=== PATIENT | male | born 1995 | race Caucasian/White ===

== ENCOUNTER 2020-06-20 10:39 | Outpatient (REF) | payer OTHER, SELFPAY | END 2020-06-20 10:40 | disposition home or self-care (01) | LOC: HO.LAB 10:39 | PROVIDERS: Visit Provider Internal Medicine | DX: Z20.828 Contact with and (suspected) exposure to other viral communicable diseases (principal) | CPT/HCPCS: C9803; U0003 ==

== ENCOUNTER 2020-09-27 09:22 | Emergency (ER) | payer OTHER, SELFPAY ==
--- NOTE | ~2020-09-27 | XR_ITS ---
EXAMINATION: XR CHEST CLINICAL INFORMATION: Chest pressure COMPARISON: None TECHNIQUE: Portable upright AP x2 views of the chest was obtained. FINDINGS: The lungs are clear. There is no pneumothorax or pleural reaction. No airspace consolidation or groundglass opacity. The costophrenic sulci are well-defined. The heart is normal in size. The hilar and mediastinal contours and bony structures are unremarkable. XR/XR chest 1V IMPRESSION: Unremarkable examination.
[2020-09-27 09:24] VITALS: BP 126/63; PULSE 68; RESP 18; TEMP 36.8; O2SAT 100; BMI 29.0
--- NOTE | 2020-09-27 09:44 | ECG_ITS ---
Test Reason : CHEST PAIN Blood Pressure : / mmHG Vent. Rate : 077 BPM Atrial Rate : 077 BPM P-R Int : 154 ms QRS Dur : 098 ms QT Int : 400 ms P-R-T Axes : 056 069 012 degrees QTc Int : 452 ms Normal sinus rhythm with sinus arrhythmia Nonspecific ST and T wave abnormality Abnormal ECG No previous ECGs available Referred By: Jossy Bailey Electronically Signed By:STELLA ARCE MD
--- NOTE | 2020-09-27 10:03 | ED_ITS ---
HPI - Chest Pain General Chief Complaint: Chest Pain Stated Complaint: chest pressure,vomiting 2 weeks Time Seen by Provider: 09/27/20 09:43 Source: patient Mode of arrival: ambulatory Limitations: no limitations History of Present Illness HPI narrative: 25 y/o male with no PMH presents to the ED with 2 weeks of gabriel ious symptoms including fatigue, generalized weakness, nausea along with palpitations and chest pressure. He wakes up each morning nauseated but does not vomit. He states he has been eating and drinking normally later in the day. He denies abdominal pain. He states he feels intermittent chest pressure and has noticed his heart racing. He checked his blood pressure at home and it was elevated 150/80. He has no history of HTN and is not taking any medications. He is SOB when is heart is racing. He endorses anxiety and nervousness. 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 Fatigue and generalized weakness are in the mornings and resolve later in the day. He has an appointment with his PCP at 4:30 pm today. MD complaint: chest discomfort and other (nausea, fatigue ) Onset (ago): week(s) (2) Timing of current episode: episodic Prior episodes: No Onset: during rest, during exertion and awoke with symptoms Pain location: substernal Pain radiation: none Severity: mild Quality: heaviness Relieving factors: nothing Exacerbating factors: nothing Associated symptoms: nausea and palpitations Treatment prior to arrival: none Risk Factors Coronary artery disease risk factors: none Thoracic aortic dissection risk factors: none Related Data Previous Rx's Medication Instructions Recorded ondansetron HCl [Zofran] 4 mg PO Q8H PRN #10 tab 09/27/20 Allergies Allergy/AdvReac Type Severity Reaction Status Date / Time No Known Allergies Allergy Unverified 09/27/20 09:44 Review of Systems Review of Systems: Constitutional: No Fever, No Chills ENT/Mouth: No sore throat, No Rhinorrhea, No Swallowing Difficulty Eyes: No Eye Pain, No Swelling, No Redness Cardiovascular: + Chest Pain, + SOB, No Orthopnea, No Edema Respiratory: No Cough, No Sputum, No Wheezing, No dyspnea Gastrointestinal: + Nausea, No Vomiting, No Diarrhea, No abdominal Pain, No Hematochezia, No Melena Genitourinary: No Dysuria, No Urinary Frequency, No Hematuria Musculoskeletal: No joint pain, + Myalgias Skin: No Skin Lesions, No rash Neuro: + Weakness, No Numbness, No Dizziness, No Headache Psych: + Anxiety/Panic, No Depression Heme/Lymph: No Bruising, No Lymphadenopathy Endocrine: No Polyuria, No Polydipsia [facility] Past Medical History Attestation statement: The following information was validated with the patient. Medical History No known health problems Social History Social History Alcohol intake: never Smoking Status: Never smoker Use of substances other than those prescribed or required for medical reasons: No Advance Directives: No Advance Directives Information Provided: No Physical Exam Vital Signs: Vital Signs: Last Vital Signs Temp 98.3 F 09/27/20 09:24 Pulse 68 09/27/20 09:24 Resp 18 09/27/20 09:24 BP 126/63 09/27/20 09:24 Pulse Ox 100 09/27/20 09:24 Body Mass Index 29.0 Appearance: Alert. Oriented X3. No acute distress. Eyes: Pupils equal, round and reactive to light. ENT: Pharynx normal. Neck: Normal inspection. Neck supple. CVS: Normal heart rate and rhythm. Pulses normal. Anterior chest wall non- tender Respiratory: No respiratory distress. Breath sounds normal. Abdomen: Soft and nontender. +BS x4 Skin: Skin warm and dry. Normal skin color. Normal skin turgor. No rashes. Extremities: No lower extremity edema. Neuro: Oriented X 3. No motor deficit. No sensory deficit. Course Course Course Narrative: 25 y/o healthy male presenting with 2 weeks of various symptoms including fatigue, nausea, palpiations, chest pressure, SOB, generalized weakness. He appears well on arrival and VS are stable. Exam is benign. Will r/o cardiac etiology wtih EKD and troponin, although suspicion is very low. COVID/Viral PCR pending. Doubt mono given no lymphadenopathy, no sore throat. 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 Suspect anxiety is playing a significant role. Reevaluation(s) Reevaluation #1: COVID positive which can explain his symptatology. He is not hypoxic, tachycardic or SOB. He is PERC negative. However given his COVID positive status and reports of chest pressure and palpiations will get DDIMER to r/o PE. Reevaluation #2: DDIMER <200. Patient counseled extensively on his diagnosis and expressed understanding. He will follow up with PCP and come back to the ER if he develops difficulty breathing or worsening symptoms. MDM - Chest Pain Medical Records Data Attestation: I reviewed the patient's medical records. Lab Data Attestation: I reviewed the patient's lab results. Result diagrams: 09/27/20 10:32 09/27/20 10:32 Labs: Lab Results 09/27/20 09/27/20 09/27/20 Range/Units 10:32 10:32 10:32 WBC 6.1 (4.8-10.8) X10*3/uL RBC 4.91 (4.60-5.80) X10*6/uL Hgb 15.0 (14.0-18.0) g/dl Hct 44.3 (42-52) % MCV 90.2 (80-98) fL MCH 30.5 (27.0-33.0) pg MCHC 33.9 (31.0-36.0) g/dl RDW 11.2 (11.0-16.0) % Plt Count 281 (160-400) X10*3/uL MPV 9.4 (9.4-12.4) fL Immature Gran % (Auto) 0.2 (0.0-0.4) % Neut % (Auto) 61.8 (45-73) % Lymph % (Auto) 28.3 (20-40) % [place] % (Auto) 7.9 (2-11) % Eos % (Auto) 1.3 (0-4) % Baso % (Auto) 0.5 (0-2) % Lymph # (Auto) 1.7 (1.2-4.9) X10*3/uL [place] # (Auto) 0.5 (0.1-1.2) X10*3/uL Eos # (Auto) 0.1 (0.0-0.4) X10*3/uL Baso # (Auto) 0.0 (0.0-0.2) X10*3/uL Abs Immat Gran (auto) 0.01 (0.00-0.03) X10*3/uL Absolute Neuts (auto) 3.8 (2.0-8.3) X10*3/uL Absolute Nucleated RBC 0.000 (0.0-0.012) X10*3/uL Nucleated RBC % (auto) 0.0 (0.0-0.2) /100WBC D-Dimer < 200 NG/ML Hold Blue Top SEE NOTE Sodium 139 (135-145) mmol/L Potassium 4.4 (3.3-5.1) mmol/L Chloride 105 (96-108) mmol/L Carbon Dioxide 27 (22-29) mmol/L Anion Gap 11 L (12-20) BUN 12 (9-16) mg/dL Creatinine 1.01 (0.5-1.4) mg/dL Estim Creat Clear Calc 112.1 Estimated GFR > 60 Random Glucose 110 (60-115) mg/dL Calcium 9.9 (8.4-10.2) mg/dL Magnesium 2.2 (1.6-2.6) mg/dL Total Bilirubin 1.0 (0.0-1.0) mg/dL Direct Bilirubin 0.4 (0.0-0.5) mg/dL AST 20 (5-37) U/L ALT 24 (0-40) U/L Alkaline Phosphatase 89 (39-117) U/L Troponin I High Sens (<3.5-35.0) ng/L Total Protein 7.2 (6.5-8.0) g/dL Albumin 4.7 (3.5-5.0) g/dL Lipase 17 (8-78) U/L Urine Color Urine Appearance Urine pH (5.0-8.0) Ur Specific [place] (1.005-1.025) Urine Protein (NEG-TRACE) MG/DL Urine Glucose (UA) (NEG) MG/DL Urine Ketones (NEG) MG/DL Urine Blood (NEG) Urine Nitrite (NEG) Ur Leukocyte Esterase (NEG) Urine RBC (0) /HPF Urine WBC (0-4) /HPF Ur Squamous Epith Cells /LPF Urine Bacteria /LPF Urine Mucus /LPF Urine Opiates Screen (Not Detect) Ur Barbiturates Screen (Not Detect) Ur Phencyclidine Scrn (Not Detect) Ur Amphetamines Screen (Not Detect) U Benzodiazepines Scrn (Not Detect) Urine Cocaine Screen (Not Detect) U Marijuana (THC) Screen (Not Detect) Coronavirus (PCR) (Negative) Influenza Type A (PCR) (Negative) Influenza Type B (PCR) (Negative) RSV RNA Qual (PCR) (Negative) 09/27/20 09/27/20 09/27/20 Range/Units 10:32 10:32 11:49 WBC (4.8-10.8) X10*3/uL RBC (4.60-5.80) X10*6/uL Hgb (14.0-18.0) g/dl Hct (42-52) % MCV (80-98) fL MCH (27.0-33.0) pg MCHC (31.0-36.0) g/dl RDW (11.0-16.0) % Plt Count (160-400) X10*3/uL MPV (9.4-12.4) fL Immature Gran % (Auto) (0.0-0.4) % Neut % (Auto) (45-73) % Lymph % (Auto) (20-40) % [place] % (Auto) (2-11) % Eos % (Auto) (0-4) % Baso % (Auto) (0-2) % Lymph # (Auto) (1.2-4.9) X10*3/uL [place] # (Auto) (0.1-1.2) X10*3/uL Eos # (Auto) (0.0-0.4) X10*3/uL Baso # (Auto) (0.0-0.2) X10*3/uL Abs Immat Gran (auto) (0.00-0.03) X10*3/uL Absolute Neuts (auto) (2.0-8.3) X10*3/uL Absolute Nucleated RBC (0.0-0.012) X10*3/uL Nucleated RBC % (auto) (0.0-0.2) /100WBC D-Dimer NG/ML Hold Blue Top Sodium (135-145) mmol/L Potassium (3.3-5.1) mmol/L Chloride (96-108) mmol/L Carbon Dioxide (22-29) mmol/L Anion Gap (12-20) BUN (9-16) mg/dL Creatinine (0.5-1.4) mg/dL Estim Creat Clear Calc Estimated GFR Random Glucose (60-115) mg/dL Calcium (8.4-10.2) mg/dL Magnesium (1.6-2.6) mg/dL Total Bilirubin (0.0-1.0) mg/dL Direct Bilirubin (0.0-0.5) mg/dL AST (5-37) U/L ALT (0-40) U/L Alkaline Phosphatase (39-117) U/L Troponin I High Sens < 3.5 (<3.5-35.0) ng/L Total Protein (6.5-8.0) g/dL Albumin (3.5-5.0) g/dL Lipase (8-78) U/L Urine Color YELLOW Urine Appearance CLEAR Urine pH 8.0 (5.0-8.0) Ur Specific [place] 1.020 (1.005-1.025) Urine Protein NEG (NEG-TRACE) MG/DL Urine Glucose (UA) NEG (NEG) MG/DL Urine Ketones 5 (NEG) MG/DL Urine Blood TRACE (NEG) Urine Nitrite NEG (NEG) Ur Leukocyte Esterase NEG (NEG) Urine RBC 1-4 (0) /HPF Urine WBC 0-2 (0-4) /HPF Ur Squamous Epith Cells NONE /LPF Urine Bacteria NONE /LPF Urine Mucus 1+ /LPF Urine Opiates Screen (Not Detect) Ur Barbiturates Screen (Not Detect) Ur Phencyclidine Scrn (Not Detect) Ur Amphetamines Screen (Not Detect) U Benzodiazepines Scrn (Not Detect) Urine Cocaine Screen (Not Detect) U Marijuana (THC) Screen (Not Detect) Coronavirus (PCR) POSITIVE A (Negative) Influenza Type A (PCR) NEGATIVE (Negative) Influenza Type B (PCR) NEGATIVE (Negative) RSV RNA Qual (PCR) NEGATIVE (Negative) 09/27/20 Range/Units 11:49 WBC (4.8-10.8) X10*3/uL RBC (4.60-5.80) X10*6/uL Hgb (14.0-18.0) g/dl Hct (42-52) % MCV (80-98) fL MCH (27.0-33.0) pg MCHC (31.0-36.0) g/dl RDW (11.0-16.0) % Plt Count (160-400) X10*3/uL MPV (9.4-12.4) fL Immature Gran % (Auto) (0.0-0.4) % Neut % (Auto) (45-73) % Lymph % (Auto) (20-40) % [place] % (Auto) (2-11) % Eos % (Auto) (0-4) % Baso % (Auto) (0-2) % Lymph # (Auto) (1.2-4.9) X10*3/uL [place] # (Auto) (0.1-1.2) X10*3/uL Eos # (Auto) (0.0-0.4) X10*3/uL Baso # (Auto) (0.0-0.2) X10*3/uL Abs Immat Gran (auto) (0.00-0.03) X10*3/uL Absolute Neuts (auto) (2.0-8.3) X10*3/uL Absolute Nucleated RBC (0.0-0.012) X10*3/uL Nucleated RBC % (auto) (0.0-0.2) /100WBC D-Dimer NG/ML Hold Blue Top Sodium (135-145) mmol/L Potassium (3.3-5.1) mmol/L Chloride (96-108) mmol/L Carbon Dioxide (22-29) mmol/L Anion Gap (12-20) BUN (9-16) mg/dL Creatinine (0.5-1.4) mg/dL Estim Creat Clear Calc Estimated GFR Random Glucose (60-115) mg/dL Calcium (8.4-10.2) mg/dL Magnesium (1.6-2.6) mg/dL Total Bilirubin (0.0-1.0) mg/dL Direct Bilirubin (0.0-0.5) mg/dL AST (5-37) U/L ALT (0-40) U/L Alkaline Phosphatase (39-117) U/L Troponin I High Sens (<3.5-35.0) ng/L Total Protein (6.5-8.0) g/dL Albumin (3.5-5.0) g/dL Lipase (8-78) U/L Urine Color Urine Appearance Urine pH (5.0-8.0) Ur Specific [place] (1.005-1.025) Urine Protein (NEG-TRACE) MG/DL Urine Glucose (UA) (NEG) MG/DL Urine Ketones (NEG) MG/DL Urine Blood (NEG) Urine Nitrite (NEG) Ur Leukocyte Esterase (NEG) Urine RBC (0) /HPF Urine WBC (0-4) /HPF Ur Squamous Epith Cells /LPF Urine Bacteria /LPF Urine Mucus /LPF Urine Opiates Screen Not Detected (Not Detect) Ur Barbiturates Screen Not Detected (Not Detect) Ur Phencyclidine Scrn Not Detected (Not Detect) Ur Amphetamines Screen Not Detected (Not Detect) U Benzodiazepines Scrn Not Detected (Not Detect) Urine Cocaine Screen Not Detected (Not Detect) U Marijuana (THC) Screen Not Detected (Not Detect) Coronavirus (PCR) (Negative) Influenza Type A (PCR) (Negative) Influenza Type B (PCR) (Negative) RSV RNA Qual (PCR) (Negative) ECG Data ECG #1: Attestation: I personally reviewed and interpreted this ECG as follows: ECG interpretation date: 09/27/20 ECG interpretation time: 09:52 Interpretation: normal sinus rhythm, HR 77 bpm, voltage consistent with LVH, isolated t-wave inversion in lead III, no ST segment elevations, normal UT interval, normal QTc Discharge Plan Discharge Clinical Impression: COVID-19 Patient Disposition: Home, Self-Care Instructions: COVID-19 (Coronavirus Disease 2019) (ED) Additional Instructions: You were found to be COVID-19 POSITIVE today. Your chest x-ray and oxygen levels were normal. You lab workup today was normal. Rest. Drink plenty of fluids. Do not go out in public for the next 10 days. Take over the counter cold/flu medications as needed for your symptoms. Take Tylenol and/or Motrin as needed for fevers and body aches. Follow up with your doctor this week. If you shortness of breath worsens , if you develop difficulty breathing or any other concerning symptom come back to the ER for further evaluation. Follow up with your doctor as scheduled today at 4:30 pm. Recommend virtual visit due to COVID-19 status. Prescriptions: New ondansetron HCl [Zofran] 4 mg tablet 4 mg PO Q8H PRN (Reason: nausea and vomiting) Qty: 10 RF: 0 Stand Alone Forms: Work/School Release Print Language: Monegasque
[2020-09-27 10:42] LABS: MANUAL DIFF FLAG NO
[2020-09-27 10:44] LABS: Basophils Percent Auto 0.5 % (0-2); Eosinophils Absolute Auto 0.1 X10*3/uL (0.0-0.4); Eosinophils Percent Auto 1.3 % (0-4); Hematocrit 44.3 % (42-52); Imm Gran Abs Auto 0.01 X10*3/uL (0.00-0.03); Imm Gran Pct Auto 0.2 % (0.0-0.4); Lymphocytes Absolute Auto 1.7 X10*3/uL (1.2-4.9); Lymphocytes Percent Auto 28.3 % (20-40); Mean Corpuscular HGB Conc 33.9 g/dl (31.0-36.0); Mean Corpuscular Hemoglobin 30.5 pg (27.0-33.0); Mean Corpuscular Volume 90.2 fL (80-98); Mean Platelet Volume 9.4 fL (9.4-12.4); Monocytes Absolute Auto 0.5 X10*3/uL (0.1-1.2); Monocytes Percent Auto 7.9 % (2-11); Neutrophils Absolute Auto 3.8 X10*3/uL (2.0-8.3); Neutrophils Percent Auto 61.8 % (45-73); Platelet Count 281 X10*3/uL (160-400); Red Blood Count 4.91 X10*6/uL (4.60-5.80); Red Cell Distribution Width 11.2 % (11.0-16.0); White Blood Count 6.1 X10*3/uL (4.8-10.8)
[2020-09-27 11:23] LABS: Troponin-I High Sensitivity < 3.5 ng/L (<3.5-35.0)
[2020-09-27 11:26] LABS: Alanine Aminotransferase 24 U/L (0-40); Albumin Level 4.7 g/dL (3.5-5.0); Alkaline Phosphatase 89 U/L (39-117); Aspartate Amino Transferase 20 U/L (5-37); Bilirubin Direct 0.4 mg/dL (0.0-0.5); Blood Urea Nitrogen 12 mg/dL (9-16); Calcium 9.9 mg/dL (8.4-10.2); Creatinine Clr Calc Pharmacy 112.1; Estimated Glomerular Filt Rate > 60; Glucose Random 110 mg/dL (60-115); Lipase 17 U/L (8-78); Magnesium 2.2 mg/dL (1.6-2.6); Total Protein 7.2 g/dL (6.5-8.0)
[2020-09-27 11:30] LABS: Influenza A PCR NEGATIVE (Negative); Influenza B PCR NEGATIVE (Negative); Resp Syncy Virus RNA Qual PCR NEGATIVE (Negative); SARS COV2 PCR INHOUSE POSITIVE (Negative)
[2020-09-27 11:34] LABS: Anion Gap 11 (12-20); Carbon Dioxide 27 mmol/L (22-29); Chloride 105 mmol/L (96-108); Potassium 4.4 mmol/L (3.3-5.1); Sodium 139 mmol/L (135-145)
[2020-09-27 11:52] LABS: D Dimer < 200 NG/ML
[2020-09-27 12:04] LABS: Glucose Urine UA NEG (NEG); Leukocyte Esterase Urine NEG (NEG); Nitrite Urine NEG (NEG); Urine Blood TRACE (NEG); Urine Ketones 5 MG/DL (NEG); Urine Protein NEG (NEG-TRACE)
[2020-09-27 12:07] LABS: Appearance Urine CLEAR; Color Urine YELLOW
[2020-09-27 12:25] LABS: WBC Urine 0-2 /HPF (0-4)
[2020-09-27 12:26] LABS: Mucus Urine 1+ /LPF
[2020-09-27 12:35] LABS: Amphetamine Screen Urine Not Detected (Not Detect); Barbiturates, Urine Not Detected (Not Detect); Benzodiazepines Screen Urine Not Detected (Not Detect); Cannabinoid Screen Urine Not Detected (Not Detect); Cocaine Screen Urine Not Detected (Not Detect); Opiate Screen Urine Not Detected (Not Detect); Phencyclidine Screen Urine Not Detected (Not Detect)
== END 2020-09-27 12:58 | disposition home or self-care (01) ==
PROVIDERS: Physician Assistant; Emergency Provider Emergency Medicine
DX: U07.1 COVID-19 (principal); R07.9 Chest pain, unspecified
CPT/HCPCS: 0241U; 36415; 71045; 80048; 80076; 80307; 81001; 81003; 83690; 83735; 84484; 85025; 85379; 93005; 99283

== ENCOUNTER 2020-10-08 10:19 | Outpatient (REF) | payer OTHER, SELFPAY | END 2020-10-08 10:20 | disposition home or self-care (01) | LOC: HO.LAB 10:19 | PROVIDERS: Visit Provider Internal Medicine | DX: Z20.822 Contact with and (suspected) exposure to COVID-19 (principal) | CPT/HCPCS: 36415; C9803; U0003; U0005 ==

== ENCOUNTER 2021-04-10 21:04 | Emergency (ER) | payer OTHER, SELFPAY ==
--- NOTE | ~2021-04-10 | XR_ITS ---
EXAMINATION: RIGHT HAND AND WRIST CLINICAL INFORMATION: Pain fourth metacarpal COMPARISON: None TECHNIQUE: 3 views right hand and wrist FINDINGS: There is a spiral fracture involving the proximal diaphysis of the fourth metacarpal. Minimal fracture fragment displacement is seen with no angulation. No other fractures are detected. XR/XR hand wrist RT IMPRESSION: Boxer's type fracture fourth metacarpal
[2021-04-10 22:00] VITALS: BP 131/75; PULSE 77; RESP 18; TEMP 36.8; O2SAT 98; BMI 28.5
--- NOTE | 2021-04-10 22:25 | ED.EXTPRO ---
HPI - Extremity Problem General Chief complaint: Extremity Injury, Upper Stated complaint: Hand injury Time Seen by Provider: 04/10/21 23:19 Source: patient Mode of arrival: ambulatory Limitations: language barrier History of Present Illness HPI Narrative: 25-year-old male presents with injury to the right hand sustained while working. Stated that he had his hand twisted while using a high-power drill. He does have some swelling and some tenderness to the hand and is having a difficult time moving his fingers because of pain. MD Complaint: extremity pain and extremity swelling Onset (ago): hour(s) (Within the hour of arrival) Pain Consistency: constant Location: right Severity scale (1-10): 8 Quality: aching and constant Radiation: none Relieving factors: cold therapy and rest Exacerbating factors: range of motion and palpation Associated symptoms: denies other symptoms Related Data Previous Rx's Medication Instructions Recorded ondansetron HCl 4 mg tablet 4 mg PO Q8H PRN #10 tab 09/27/20 (Zofran) ibuprofen 600 mg tablet 600 mg PO Q6H PRN #60 tab 04/10/21 oxycodone 5 mg tablet 5 mg PO Q6H PRN #7 tab 04/10/21 Allergies Allergy/AdvReac Type Severity Reaction Status Date / Time No Known Allergies Allergy Verified 04/10/21 22:00 Review of Systems Review of Systems: Constitutional: No Fever, No Chills ENT/Mouth: No Ear Pain, No Hoarseness, No sore throat Eyes: No Eye Pain, No Swelling, No Redness, No Foreign Body Cardiovascular: No Chest Pain, No SOB Respiratory: No Cough, No Dyspnea Gastrointestinal: No Nausea, No Vomiting, No Diarrhea, No abdominal Pain Genitourinary: No Dysuria, No Hematuria Musculoskeletal: positive right hand pain, No Myalgias, No Joint Swelling Skin: No Skin lacerations, No rash Neuro: No Weakness, No Numbness, No Paresthesias, No Loss of Consciousness, No Dizziness, No Headache Psych: No Anxiety/Panic, No Depression Heme/Lymph: no easy bruising, no Lymphadenopathy Endocrine: No Polyuria, No Polydipsia Yes all other systems are reviewed and are negative PMFSH Past Medical History Attestation statement: The following information was validated with the patient. Source: old records reviewed Medical History No known health problems Social History Social History Alcohol intake: never Advance Directives: No Advance Directives Information Provided: Yes Physical Exam Vital Signs: Vital Signs: Last Vital Signs Temp 97.8 F 04/10/21 23:52 Pulse 74 04/10/21 23:52 Resp 16 04/10/21 23:52 BP 134/56 L 04/10/21 23:52 Pulse Ox 98 04/10/21 23:52 Body Mass Index 28.5 Appearance: Alert. Oriented X3. No acute distress. Eyes: Pupils equal, round and reactive to light. ENT: Pharynx normal. Neck: Normal inspection. Neck supple. CVS: Normal heart rate and rhythm. Pulses normal. Respiratory: No respiratory distress. Breath sounds normal. Abdomen: Soft and nontender. Skin: Skin warm and dry. Normal skin color. Normal skin turgor. Extremities: Swelling and tenderness to the 4th and 5th metacarpal, full range of motion to all digits, brisk capillary refill in equal pulses to upper extremities. Neuro: No motor deficit. No sensory deficit. Course Course Course Narrative: 25-year-old male presents with injury sustained at work. His hand twisted while using a high-power drill and now has pain and swelling to the metacarpals. He does have full range of motion, brisk capillary refill, and equal strength to all digits. X-rays are positive for 4th metacarpal fracture, will place patient in a ulnar gutter splint, refer to work connection and hand surgery. Prescribed oxycodone for pain management, and ibuprofen. 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 Patient verbalized understanding of and agrees to plan of care discharge home. MDM - Extremity (Nontraumatic) MDM Narrative Medical decision making narrative: Fracture, dislocation, sprain Medical Records Attestation: I reviewed the patient's medical records. Imaging Data Hand x-ray: Attestation: I personally reviewed and interpreted this imaging study as follows: Radiologist's impression: EXAMINATION: RIGHT HAND AND WRIST CLINICAL INFORMATION: Pain fourth metacarpal? COMPARISON: None? TECHNIQUE: 3 views right hand and wrist? FINDINGS: There is a spiral fracture involving the proximal diaphysis of the fourth metacarpal. Minimal fracture fragment displacement is seen with no angulation. No other fractures are detected.? XR/XR hand wrist RT IMPRESSION: Boxer's type fracture fourth metacarpal? Discharge Plan Discharge Clinical Impression: Boxer's fracture Qualifiers: Encounter type: initial encounter Fracture type: closed Qualified Code(s): S62.339A - Displaced fracture of neck of unspecified metacarpal bone, initial encounter for closed fracture Patient Disposition: Home, Self-Care Instructions: Hand Fracture (ED), Boxer Fracture (ED) Additional Instructions: Fue evaluado por lesiones sufridas en el trabajo. Tiene caroline fractura de boxeador del cuarto metacarpiano. [place] un seguimiento con la conexi?n laboral y la cirug?a de la mano. Use Tylenol y Motrin seg?n sea necesario para controlar el dolor. Descanse, aplique hielo y eleve la lesi?n para ayudar a reducir el dolor y la hinchaz?n. No retire el yeso hasta que viviana [employer]. Le recetamos oxicodona para el manejo del dolor. Padmini medicamento es un narc?yu y tiene un alto riesgo de adicci?n y abuso. No conduzca ni maneje maquinaria mientras est? tomando padmini medicamento. [place] por elegir padmini departamento de emergencias para moon evaluaci?n. [place] un seguimiento con moon m?dico de atenci?n primaria seg?n sea necesario. Regrese al departamento de emergencias por cualquier s?ntoma nuevo, preocupante o que empeore. You were evaluated for injury sustained at work. You have a boxer's fracture of the 4th metacarpal. Please follow up with work connection and hand surgery. Use Tylenol and Motrin as needed for pain management. Please rest, ice and elevate the injury to help reduce pain and swelling. Do not remove the cast until you see Orthopedics. We prescribed oxycodone for pain management. This medication is a narcotic and has high risk for addiction and abuse. Do not drive or operate machinery while taking this medication. Thank you for choosing this emergency department for evaluation. Please follow-up with primary care physician as needed. Return to the emergency department for any new, concerning, or worsening symptoms. Prescriptions: New oxycodone 5 mg tablet 5 mg PO Q6H PRN (Reason: pain) Qty: 7 RF: 0 ibuprofen 600 mg tablet 600 mg PO Q6H PRN (Reason: pain) Qty: 60 RF: 0 No Action ondansetron HCl [Zofran] 4 mg tablet 4 mg PO Q8H PRN (Reason: nausea and vomiting) Qty: 10 RF: 0 Referrals: [facility] [Provider Group] - 2 days (Fourth metatarsal fracture) Ilene Freitas MD [Physician] - 2 days (Fourth metatarsal fracture) Stand Alone Forms: Work/School Release
[2021-04-10] MEDS: Ibuprofen 600 MG TABLET PO (22:55)
[2021-04-10 23:52] VITALS: BP 134/56; PULSE 74; RESP 16; TEMP 36.6; O2SAT 98
== END 2021-04-11 00:35 | disposition home or self-care (01) ==
PROVIDERS: Emergency Provider Internal Medicine
DX: S62.334A Displaced fracture of neck of fourth metacarpal bone, right hand, initial encounter for closed fracture (principal); M79.641 Pain in right hand; M25.531 Pain in right wrist; Y28.8XXA Contact with other sharp object, undetermined intent, initial encounter; Y93.9 Activity, unspecified; Y92.9 Unspecified place or not applicable; Y99.0 Civilian activity done for income or pay; Z79.899 Other long term (current) drug therapy
CPT/HCPCS: 73110; 73130; 99284

== ENCOUNTER 2021-04-15 12:12 | Outpatient (REF) | payer OTHER, SELFPAY ==
--- NOTE | ~2021-04-15 | XR_ITS ---
EXAMINATION: XR HAND, RIGHT CLINICAL INFORMATION: Pain COMPARISON: Right hand/wrist x-ray April 10, 2021 TECHNIQUE: PA, lateral, and oblique views of the right hand. FINDINGS: Similar appearance of spiral fracture through the fourth metacarpal. There is near anatomical alignment of the fracture. Carpal rows are maintained without carpal bone fracture. No phalangeal fracture. XR/XR hand RT min 3V IMPRESSION: Stable appearance of fourth metacarpal fracture.
== END 2021-04-15 12:13 | disposition home or self-care (01) ==
LOC: HO.HOSX 12:12
PROVIDERS: Visit Provider Physician Assistant
DX: S62.304A Unspecified fracture of fourth metacarpal bone, right hand, initial encounter for closed fracture (principal)
CPT/HCPCS: 26600; 73130; 99202

== ENCOUNTER 2021-04-22 07:14 | Outpatient (REF) | payer OTHER, SELFPAY ==
--- NOTE | ~2021-04-22 | XR_ITS ---
EXAMINATION: XR HAND, RIGHT CLINICAL INFORMATION: Pain. COMPARISON: Right hand radiographs dated 04/15/2021. TECHNIQUE: PA, lateral, and oblique views of the right hand. FINDINGS: Oblique 4th metacarpal diaphyseal fracture in unchanged anatomic alignment. No new fracture or dislocation. No joint space narrowing or marginal osteophytes. No abnormal soft tissue calcification. XR/XR hand RT min 3V IMPRESSION: Stable 4th metacarpal fracture.
== END 2021-04-22 07:15 | disposition home or self-care (01) ==
LOC: HO.HOSX 07:14
PROVIDERS: Visit Provider Physician Assistant
DX: S62.304D Unspecified fracture of fourth metacarpal bone, right hand, subsequent encounter for fracture with routine healing (principal)
CPT/HCPCS: 29075; 73130

== ENCOUNTER 2021-04-29 07:16 | Outpatient (REF) | payer OTHER, SELFPAY ==
--- NOTE | ~2021-04-29 | XR_ITS ---
EXAMINATION: XR HAND, RIGHT CLINICAL INFORMATION: Hand pain. COMPARISON: 04/10/2021, 04/15/2021 and 04/22/2021. TECHNIQUE: PA, lateral, and oblique views of the right hand. FINDINGS: Again seen is a spiral fracture involving the 4th metacarpal diaphysis proximally. There has been no significant interval change since the study of one week ago when compared to the original exam from 04/10/2021, imperceptible change is present as well. XR/XR hand RT min 3V IMPRESSION: 4th metacarpal fracture without significant evidence of healing at this time.
== END 2021-04-29 07:17 | disposition home or self-care (01) ==
LOC: HO.HOSX 07:16
PROVIDERS: Visit Provider Physician Assistant
DX: S62.304D Unspecified fracture of fourth metacarpal bone, right hand, subsequent encounter for fracture with routine healing (principal)
CPT/HCPCS: 73130; 99212

== ENCOUNTER 2021-05-20 08:14 | Outpatient (REF) | payer OTHER, SELFPAY ==
--- NOTE | ~2021-05-20 | XR_ITS ---
EXAMINATION: XR HAND, RIGHT CLINICAL INFORMATION: Right hand pain, previous fracture. COMPARISON: None TECHNIQUE: PA, lateral, and oblique views of the right hand. FINDINGS: There has been interval progressive healing of the previously seen oblique fourth metacarpal fracture with minimal displacement. The remainder the digits are intact. The soft tissues are unremarkable. XR/XR hand RT min 3V IMPRESSION: Fourth metacarpal fracture with evidence for interval healing. Fracture lines are still visible.
== END 2021-05-20 08:15 | disposition home or self-care (01) ==
LOC: HO.HOSX 08:14
PROVIDERS: Visit Provider Physician Assistant
DX: S62.304D Unspecified fracture of fourth metacarpal bone, right hand, subsequent encounter for fracture with routine healing (principal)
CPT/HCPCS: 73130; 99212

== ENCOUNTER 2021-10-08 12:07 | Outpatient (REF) | payer OTHER, SELFPAY | END 2021-10-08 12:08 | disposition home or self-care (01) | LOC: HO.HOSX 12:07 | PROVIDERS: Visit Provider Orthopaedic Surgery | DX: Z13.89 Encounter for screening for other disorder (principal) ==

== ENCOUNTER 2023-02-12 20:12 | Emergency (ER) | payer OTHER, MEDICAID, SELFPAY ==
[2023-02-12 20:19] VITALS: BP 154/80; PULSE 124; O2SAT 99
--- NOTE | 2023-02-12 20:20 | ECG_ITS ---
Test Reason : TACHYCARDIA Blood Pressure : / mmHG Vent. Rate : 110 BPM Atrial Rate : 000 BPM P-R Int : 000 ms QRS Dur : 098 ms QT Int : 486 ms P-R-T Axes : 000 059 -06 degrees QTc Int : 657 ms Sinus tachycardia T wave inversion now evident in Inferolateral leads s/o ischemia Prolonged QT Abnormal ECG When compared with ECG of 27-SEP-2020 09:58, Inverted T waves have replaced nonspecific T wave abnormality in Lateral leads Referred By: Generic ED Physician Electronically Signed By:STELLA ARCE MD
[2023-02-12 20:26] VITALS: BP 165/88; PULSE 121; RESP 16; TEMP 36.6; O2SAT 100; BMI 29.3
--- NOTE | 2023-02-12 20:53 | ED.ARRPALP ---
HPI - Arrhythmia/Palpitations General Chief Complaint: Arrhythmia/Palpitations Stated Complaint: PALPITATIONS Time Seen by Provider: 02/12/23 20:45 Source: patient Mode of arrival: ambulatory Limitations: no limitations History of Present Illness HPI narrative: norma is 27 years old male presented to emergency department by ambulance complaining of palpitations, he states that he drank a Red Bull and a cannabis infused [place] drink, since then is been experienced palpitation complaint: rapid heart beat and heart racing Onset (ago): hour(s) (1) Duration: constant Severity: mild Context: occurred during rest Associated symptoms: denies other symptoms Related Data Previous Rx's Medication Instructions Recorded ondansetron HCl 4 mg tablet 4 mg PO Q8H PRN nausea and 09/27/20 (Zofran) vomiting #10 tabs ibuprofen 600 mg tablet 600 mg PO Q6H PRN pain #60 tabs 04/10/21 oxycodone 5 mg tablet 5 mg PO Q6H PRN pain #7 tabs 04/10/21 ketoconazole 2 % shampoo 1 appl topical DAILY #120 mL 06/24/21 Allergies Allergy/AdvReac Type Severity Reaction Status Date / Time No Known Allergies Allergy Verified 02/12/23 20:28 Review of Systems Constitutional: Constitutional: Reports no additional constitutional complaints Cardiovascular: Cardiovascular: Reports no additional cardiovascular complaints Musculoskeletal: Musculoskeletal: Reports no additional musculoskeletal complaints PMFSH Past Medical History Attestation statement: The following information was validated with the patient. Medical History Male circumcision No known health problems Social History Social History Alcohol intake: current Alcohol intake frequency: holidays/special occasions only Smoked in Last 30 Days: No Use of substances other than those prescribed or required for medical reasons: No Advance Directives: No Advance Directives Information Provided: Yes Current occupational status: unemployed Current occupation: rt handed Physical Exam Vital Signs: Vital Signs: Last Vital Signs Temp 97.9 F 02/12/23 20:26 Pulse 121 H 02/12/23 20:26 Resp 16 02/12/23 20:26 BP 165/88 H 02/12/23 20:26 Pulse Ox 100 02/12/23 20:26 O2 Del Method Room Air 02/12/23 20:26 BMI result Body Mass Index 29.3 Const: General: cooperative Nutritional Appearance: well nourished Orientation/consciousness: patient oriented x3 HEENT: Head: Yes normal to inspection General nose exam: Normal external nose present Face and sinus: Yes normal facial exam Mouth: Normal oral and palatal mucosa present Throat: Yes posterior oropharynx normal Neck: Neck: Yes normal visual inspection Chest: Chest palpation & inspection: normal inspection of the chest Resp: Effort & Inspection: normal respiratory effort Cardio: Jugular venous distension: no JVD Rate: regular rate Rhythm: regular rhythm GI: Inspection: Yes normal to inspection Palpation (GI): Soft to palpation Skin: General skin exam: no rashes or lesions noted, elasticity normal and turgor normal Lesions: no lesions Rashes: no rashes Neuro: General: patient oriented x3 Course Reevaluation(s) Reevaluation #1: feels better Time: 21:27 Medications Administered Discontinued Medications Generic Name Dose Route Start Last Admin Trade Name Freq PRN Reason Stop Dose Admin Lorazepam 1 mg 02/12/23 20:52 02/12/23 21:11 Lorazepam 1 Mg Tablet PO 02/12/23 20:53 1 mg ONCE ONE Administration Medical Decision Making Medical Decision Making [facility] Narrative: Patient presented with palpitation most likely related to the caffeine drink and the cannabis will place the patient monitor administer benzodiazepine and reassess Differential Diagnosis Differential Diagnoses: The differential diagnosis associated with the presentation includes SVT/rapid a fever/anxiety/cannabis side effects Admission/Observation Consideration of admission/observation: Escalation of care including admission/observation considered Lab Data 02/12/23 20:50 02/12/23 20:50 Labs: Lab Results 02/12/23 02/12/23 02/12/23 Range/Units 20:50 20:50 20:50 WBC 12.0 H (4.8-10.8) X10*3/uL RBC 4.71 (4.60-5.80) X10*6/uL Hgb 14.0 (14.0-18.0) g/dl Hct 41.5 L (42.0-52.0) % MCV 88.1 (80.0-98.0) fL MCH 29.7 (27.0-33.0) pg MCHC 33.7 (31.0-36.0) g/dl RDW 11.7 (11.0-16.0) % Plt Count 313 (160-400) X10*3/uL MPV 9.2 L (9.4-12.4) fL Immature Gran % (Auto) 0.3 (0.0-0.4) % Neut % (Auto) 65.6 (45-73) % Lymph % (Auto) 25.1 (20-40) % [place] % (Auto) 7.5 (2-11) % Eos % (Auto) 1.2 (0-4) % Baso % (Auto) 0.3 (0-2) % Lymph # (Auto) 3.0 (1.2-4.9) X10*3/uL [place] # (Auto) 0.9 (0.1-1.2) X10*3/uL Eos # (Auto) 0.2 (0.0-0.4) X10*3/uL Baso # (Auto) 0.0 (0.0-0.2) X10*3/uL Abs Immat Gran (auto) 0.04 H (0.00-0.03) X10*3/uL Absolute Neuts (auto) 7.9 (2.0-8.3) x10*3/uL Absolute Nucleated RBC 0.000 (0.0-0.012) X10*3/uL Nucleated RBC % (auto) 0.0 (0.0-0.2) /100WBC Sodium 134 L (135-145) mmol/L Potassium 3.5 D (3.3-5.1) mmol/L Chloride 101 (96-108) mmol/L Carbon Dioxide 23 (22-29) mmol/L Anion Gap 14 (12-20) BUN 16 (9-16) mg/dL Creatinine 0.94 (0.5-1.4) mg/dL Estim Creat Clear Calc 134.9 Estimated GFR > 60 Random Glucose 208 H (60-115) mg/dL Calcium 9.5 (8.4-10.2) mg/dL Troponin I High Sens < 2.7 (<3.5-35.0) ng/L Independent Interpretation I performed an independent interpretation of an: EKG Interpretation: Sinus tachycardia rate [address]-T changes a rate-related Discharge Plan Discharge Clinical Impression: Palpitations Prescriptions: No Action ondansetron HCl [Zofran] 4 mg tablet 4 mg PO Q8H PRN (Reason: nausea and vomiting) Qty: 10 0RF oxycodone 5 mg tablet 5 mg PO Q6H PRN (Reason: pain) Qty: 7 0RF ibuprofen 600 mg tablet 600 mg PO Q6H PRN (Reason: pain) Qty: 60 0RF
[2023-02-12 20:58] LABS: MANUAL DIFF FLAG NO
[2023-02-12 21:00] LABS: Basophils Percent Auto 0.3 % (0-2); Eosinophils Absolute Auto 0.2 X10*3/uL (0.0-0.4); Eosinophils Percent Auto 1.2 % (0-4); Hematocrit 41.5 % (42.0-52.0); Imm Gran Abs Auto 0.04 X10*3/uL (0.00-0.03); Imm Gran Pct Auto 0.3 % (0.0-0.4); Lymphocytes Percent Auto 25.1 % (20-40); Mean Corpuscular HGB Conc 33.7 g/dl (31.0-36.0); Mean Corpuscular Hemoglobin 29.7 pg (27.0-33.0); Mean Corpuscular Volume 88.1 fL (80.0-98.0); Mean Platelet Volume 9.2 fL (9.4-12.4); Monocytes Absolute Auto 0.9 X10*3/uL (0.1-1.2); Monocytes Percent Auto 7.5 % (2-11); Neutrophils Absolute Auto 7.9 x10*3/uL (2.0-8.3); Neutrophils Percent Auto 65.6 % (45-73); Platelet Count 313 X10*3/uL (160-400); Red Blood Count 4.71 X10*6/uL (4.60-5.80); Red Cell Distribution Width 11.7 % (11.0-16.0)
[2023-02-12 21:04] VITALS: PULSE 115
[2023-02-12 21:11] LABS: Anion Gap 14 (12-20); Blood Urea Nitrogen 16 mg/dL (9-16); Calcium 9.5 mg/dL (8.4-10.2); Carbon Dioxide 23 mmol/L (22-29); Chloride 101 mmol/L (96-108); Creatinine Clr Calc Pharmacy 134.9; Estimated Glomerular Filt Rate > 60; Glucose Random 208 mg/dL (60-115); Potassium 3.5 mmol/L (3.3-5.1); Sodium 134 mmol/L (135-145)
[2023-02-12] MEDS: LORazepam 1 MG TABLET PO (21:11)
[2023-02-12 21:23] LABS: Troponin-I High Sensitivity < 2.7 ng/L (<3.5-35.0)
--- NOTE | 2023-02-12 22:14 | ECG_ITS ---
Test Reason : ELEVATED HR Blood Pressure : / mmHG Vent. Rate : 125 BPM Atrial Rate : 125 BPM P-R Int : 156 ms QRS Dur : 084 ms QT Int : 250 ms P-R-T Axes : 034 044 -53 degrees QTc Int : 360 ms Sinus tachycardia T wave abnormality, consider inferior ischemia T wave abnormality, consider anterolateral ischemia Abnormal ECG When compared with ECG of 12-FEB-2023 20:25, No significant changes seen Referred By: Maeve Aponte Electronically Signed By:STELLA ARCE MD
[2023-02-12 22:48] LABS: Amphetamine Screen Urine Not Detected (Not Detect); Barbiturates, Urine Not Detected (Not Detect); Benzodiazepines Screen Urine Not Detected (Not Detect); Cannabinoid Screen Urine POSITIVE (Not Detect); Cocaine Screen Urine Not Detected (Not Detect); Fentanyl, urine Not Detected (Not Detect); Opiate Screen Urine Not Detected (Not Detect); Phencyclidine Screen Urine Not Detected (Not Detect)
[2023-02-12 23:24] VITALS: BP 137/73; PULSE 124; RESP 18; TEMP 37; O2SAT 99
--- NOTE | 2023-02-12 23:26 | MHC.EDTECH ---
This tech assumed care of pt at 2300, repeat EKG taken,and vitals updated, patients HR is 124 RN and MD are aware. Call lucia within reach
[2023-02-13] MEDS: Ibuprofen 400 MG TABLET PO (00:29)
[2023-02-13] MEDS: Acetaminophen 325 MG TABLET 975 MG PO (00:29)
[2023-02-13] MEDS: 0.9 % Sodium Chloride 1,000 ML 999 ML IV (01:00)
[2023-02-13 02:14] VITALS: PULSE 72; RESP 15; O2SAT 98
[2023-02-13 02:27] VITALS: BP 111/68; PULSE 67; RESP 16; TEMP 36.9; O2SAT 97
== END 2023-02-13 02:28 | disposition home or self-care (01) ==
PROVIDERS: Emergency Medicine; Emergency Provider Student in an Organized Health Care Education/Training Program
DX: R00.2 Palpitations (principal); R00.0 Tachycardia, unspecified; R11.2 Nausea with vomiting, unspecified; Z79.899 Other long term (current) drug therapy
CPT/HCPCS: 36415; 80048; 80307; 84484; 85025; 93005; 96360; 99284; 99285

== ENCOUNTER → 2023-02-12 20:20 | Outpatient (BNV) | payer OTHER, MEDICAID, SELFPAY | PROVIDERS: Emergency Provider Student in an Organized Health Care Education/Training Program; Visit Provider Internal Medicine Cardiovascular Disease | DX: R00.2 Palpitations (principal) | CPT/HCPCS: 93010 ==

== ENCOUNTER 2023-05-01 18:15 | Outpatient (REF) | payer MEDICAID, SELFPAY | END 2023-05-01 18:16 | disposition home or self-care (01) | LOC: HO.LNP 18:15 | PROVIDERS: Visit Provider Emergency Medicine | DX: R07.0 Pain in throat (principal) | CPT/HCPCS: 87070 ==

== ENCOUNTER 2023-06-12 11:57 | Outpatient (REF) | payer OTHER, SELFPAY ==
[2023-06-12 12:40] LABS: MANUAL DIFF FLAG NO
[2023-06-12 12:58] LABS: Basophils Percent Auto 0.6 % (0-2); Eosinophils Absolute Auto 0.2 X10*3/uL (0.0-0.4); Eosinophils Percent Auto 2.8 % (0-4); Hematocrit 43.9 % (42.0-52.0); Hemoglobin 14.8 g/dl (14.0-18.0); Imm Gran Abs Auto 0.01 X10*3/uL (0.00-0.03); Imm Gran Pct Auto 0.2 % (0.0-0.4); Lymphocytes Absolute Auto 2.6 X10*3/uL (1.2-4.9); Lymphocytes Percent Auto 39.7 % (20-40); Mean Corpuscular HGB Conc 33.7 g/dl (31.0-36.0); Mean Corpuscular Hemoglobin 29.8 pg (27.0-33.0); Mean Corpuscular Volume 88.5 fL (80.0-98.0); Mean Platelet Volume 9.2 fL (9.4-12.4); Monocytes Absolute Auto 0.6 X10*3/uL (0.1-1.2); Monocytes Percent Auto 8.5 % (2-11); Neutrophils Absolute Auto 3.1 x10*3/uL (2.0-8.3); Neutrophils Percent Auto 48.2 % (45-73); Platelet Count 305 X10*3/uL (160-400); Red Blood Count 4.96 X10*6/uL (4.60-5.80); Red Cell Distribution Width 11.8 % (11.0-16.0); White Blood Count 6.5 X10*3/uL (4.8-10.8)
[2023-06-12 13:20] LABS: Estimated Average Glucose 91 mg/dL; Hemoglobin A1c % 4.8 % (<6.0)
[2023-06-12 13:43] LABS: Anion Gap 9 (12-20); Blood Urea Nitrogen 13 mg/dL (9-16); Calcium 9.6 mg/dL (8.4-10.2); Carbon Dioxide 29 mmol/L (22-29); Chloride 105 mmol/L (96-108); Cholesterol 178 mg/dL (<200); Estimated Glomerular Filt Rate > 60; Glucose Random 98 mg/dL (60-115); HDL Cholesterol 43 mg/dL (>40); LDL Cholesterol Calculated 116 mg/dL (<100); Potassium 4.2 mmol/L (3.3-5.1); Sodium 139 mmol/L (135-145); Triglycerides 95 mg/dL (<150)
[2023-06-12 14:08] LABS: TSH reflex Free T4 1.39 uIU/mL (0.32-4.0)
[2023-06-12 14:10] LABS: Folate 3.6 ng/mL (> or = 4.0); Vitamin B12 492 pg/mL (200-900)
[2023-06-15 17:43] LABS: Homocysteine 12.3 umol/L (<11.4)
[2023-06-16 16:04] LABS: Methylmalonic Acid 118 nmol/L (87-318)
== END 2023-06-12 11:58 | disposition home or self-care (01) ==
LOC: HO.HHCL 11:57
PROVIDERS: Visit Provider Internal Medicine
DX: R20.0 Anesthesia of skin (principal); E66.09 Other obesity due to excess calories; F41.9 Anxiety disorder, unspecified; Z68.30 Body mass index [BMI] 30.0-30.9, adult
CPT/HCPCS: 36415; 80048; 80061; 82607; 82746; 83036; 83090; 83921; 84443; 85025

== ENCOUNTER 2023-12-04 10:19 | Emergency (ER) | payer OTHER, SELFPAY ==
--- NOTE | ~2023-12-04 | XR_ITS ---
EXAMINATION: XR CHEST CLINICAL INFORMATION: Chest pain and back pain. COMPARISON: Most recent chest radiograph dated 09/27/2020. TECHNIQUE: 2 views of the chest were obtained. FINDINGS: The lungs are clear. The cardiomediastinal silhouette is normal in size. There is no pleural effusion or pneumothorax. No acute osseous abnormality. XR/XR chest 2V IMPRESSION: No acute cardiopulmonary findings.
--- NOTE | 2023-12-04 10:26 | ECG_ITS ---
Test Reason : abn ekg Blood Pressure : / mmHG Vent. Rate : 105 BPM Atrial Rate : 105 BPM P-R Int : 146 ms QRS Dur : 090 ms QT Int : 382 ms P-R-T Axes : 060 060 -17 degrees QTc Int : 504 ms Sinus tachycardia T wave abnormality, consider inferior ischemia T wave abnormality, consider anterolateral ischemia Abnormal ECG When compared with ECG of 12-FEB-2023 23:15, No significant changes seen Referred By: Generic ED Physician Electronically Signed By:SAILAJA GLASGOW
[2023-12-04 10:32] VITALS: BP 140/84; PULSE 100; RESP 19; TEMP 36.6; O2SAT 100; BMI 29.7
[2023-12-04 10:53] LABS: MANUAL DIFF FLAG NO
[2023-12-04 10:54] LABS: Basophils Percent Auto 0.4 % (0-2); Eosinophils Absolute Auto 0.2 X10*3/uL (0.0-0.4); Eosinophils Percent Auto 3.1 % (0-4); Hematocrit 45.4 % (42.0-52.0); Hemoglobin 15.6 g/dl (14.0-18.0); Imm Gran Abs Auto 0.03 X10*3/uL (0.00-0.03); Imm Gran Pct Auto 0.4 % (0.0-0.4); Lymphocytes Absolute Auto 2.2 X10*3/uL (1.2-4.9); Lymphocytes Percent Auto 30.9 % (20-40); Mean Corpuscular HGB Conc 34.4 g/dl (31.0-36.0); Mean Corpuscular Hemoglobin 30.5 pg (27.0-33.0); Mean Corpuscular Volume 88.7 fL (80.0-98.0); Monocytes Absolute Auto 0.5 X10*3/uL (0.1-1.2); Monocytes Percent Auto 7.4 % (2-11); Neutrophils Percent Auto 57.8 % (45-73); Platelet Count 281 X10*3/uL (160-400); Red Blood Count 5.12 X10*6/uL (4.60-5.80); Red Cell Distribution Width 11.5 % (11.0-16.0)
[2023-12-04 11:06] LABS: Anion Gap 16 (12-20); Blood Urea Nitrogen 11 mg/dL (9-16); Calcium 10.8 mg/dL (8.4-10.2); Carbon Dioxide 25 mmol/L (22-29); Chloride 102 mmol/L (96-108); Creatinine Clr Calc Pharmacy 134.6; Estimated Glomerular Filt Rate > 60; Glucose Random 129 mg/dL (60-115); Potassium 4.3 mmol/L (3.3-5.1); Sodium 139 mmol/L (135-145)
[2023-12-04 11:17] LABS: Troponin-I High Sensitivity < 2.7 ng/L (<3.5-35.0)
--- NOTE | 2023-12-04 12:52 | ED.GENADULT ---
HPI - General Adult General Chief complaint: General Medical Stated complaint: abnormal ekg sent in from [facility] Source: patient and family Mode of arrival: ambulatory Limitations: no limitations History of Present Illness HPI narrative: Patient is a 28-year-old male presenting to the emergency department from [facility] with complaint of left sided rib pain, went to urgent care and was referred here with report of abnormal EKG. He presented to urgent care with intermittent chest/epigastric pain for 2 weeks, as well as nausea and vomiting the past two days. He denies current chest or abdominal pain. Denies current nausea, states has been able to tolerate p.o. food and fluids today. Denies fevers. Denies cough or other URI symptoms. complaint: rib pain Onset (ago): hour(s) Quality: sharp Pain Consistency: intermittent Relieving factors: rest Exacerbating factors: movement Associated symptoms: nausea/vomiting (past 2 days, none today) Treatments prior to arrival: none Related Data Previous Rx's ?Medication ?Instructions ?Recorded ondansetron HCl 4 mg tablet 4 mg PO Q8H PRN nausea and 09/27/20 (Zofran) vomiting #10 tabs ibuprofen 600 mg tablet 600 mg PO Q6H PRN pain #60 tabs 04/10/21 oxycodone 5 mg tablet 5 mg PO Q6H PRN pain #7 tabs 04/10/21 ketoconazole 2 % shampoo 1 appl topical DAILY #120 mL 06/24/21 lidocaine 5 % topical patch 1 patch topical DAILY #15 ea 12/04/23 Allergies Allergy/AdvReac Type Severity Reaction Status Date / Time No Known Allergies Allergy Verified 12/04/23 10:37 Review of Systems Review of Systems: As per HPI. Yes all other systems are reviewed and are negative Constitutional: Constitutional: Reports as per HPI [facility] Past Medical History Medical History Male circumcision No known health problems Social History Social History Alcohol intake: current Alcohol intake frequency: holidays/special occasions only Advance Directives: No Advance Directives Information Provided: No Current occupational status: unemployed Current occupation: rt handed Physical Exam ED Vital Signs: Vital Signs - 24 hr 12/04/23 10:32 Temperature 98 F Pulse Rate 100 Respiratory Rate 19 Blood Pressure 140/84 H Pulse Oximetry 100 Oxygen Delivery Method Room Air BMI result Body Mass Index 29.7 Vital signs have been reviewed and appear to be correct. Blood pressure elevated. Heart rate normal. Respiratory rate normal. Temperature normal. Oxygen saturation normal. Const General: cooperative, healthy appearing and no acute distress Orientation/consciousness: oriented to person, oriented to place, oriented to time and patient oriented x3 Limitations: no limitations HENMT Head: Yes normocephalic and Yes atraumatic Ears: external ears normal General nose exam: Normal external nose present Face and sinus: Yes face symmetric Mouth: oropharynx normal and moist mucous membranes Throat: Yes uvula midline Eyes Pupils: Equal, round and reactive pupils present Neck Neck: Yes normal visual inspection and Yes supple Chest Chest palpation & inspection: normal inspection of the chest and tenderness rib left mid-axillary line involving the 8th rib, involving the 9th rib and involving the 10th rib Resp Effort & Inspection: normal respiratory effort and able to speak in complete sentences Auscultation: clear to auscultation bilaterally Cardio Rate: regular rate Rhythm: regular rhythm Heart sounds: S1 normal heart sound present and S2 normal heart sound present Peripheral pulses: Peripheral pulses 2+ throughout GI Palpation (GI): Soft to palpation and nontender Auscultation: normoactive bowel sounds General: Yes no CVA tenderness Back/Spine/Pelvis Back: no CVA tenderness Skin General skin exam: elasticity normal and turgor normal Neuro General: oriented to person, oriented to place, oriented to time, patient oriented x3, moves all extremities, no focal motor deficits and CN's II-XI intact bilaterally Cranial nerves: Yes Equal, round and reactive pupils present Cognition (Neuro): normal cognition Extrem General: Yes full ROM, Yes no pedal edema and Yes no calf tenderness Psych Mental Status: mental status grossly normal Affect: normal affect Thought process: Normal thought process present Medical Decision Making Medical Decision Making MDM Narrative: Patient is a 28-year-old male presenting to the emergency department from [facility] with complaint of left sided rib pain, went to urgent care and was referred here with report of abnormal EKG. On exam patient is awake, A+Ox3, VS WNL, afebrile, normal neurological exam without focal deficits, physical exam findings as above. Given reported symptoms and physical exam findings, initial differential includes costochondritis, viral illness, gastroenteritis. Unlikely ACS. EKG shows sinus tachycardia with T wave abnormalities but unchanged from prior. Labs unremarkable, negative troponin. X-ray notable for no evidence of cardiomegaly, pneumothorax, pneumonia. My interpretation is in agreement with the radiologist's interpretation. Dr. Peres consulted and reviewed EKG, states no concerns at this time. Based on physical exam findings and reported history, feel symptoms are most likely related to costochondritis. Feel patient is stable for discharge home at this time. Advised patient to use ibuprofen and will prescribe topical lidocaine patches. Instructed patient to follow-up with PCP, return precautions discussed. Patient verbalized understanding of and agreement with plan. Differential Diagnosis Differential Diagnoses: The differential diagnosis associated with the presentation includes As per MDM. Admission/Observation Consideration of admission/observation: Escalation of care including admission/observation considered Patient would have been admitted to the hospital had their work up had any findings where hospital admission was appropriate and their clinical presentation warranted hospital admission. Lab Data [facility] Lab Attestation statement: I reviewed the patient's lab results. As per MDM. 12/04/23 10:48 12/04/23 10:48 Labs: Lab Results 12/04/23 Range/Units 10:48 WBC 7.0 (4.8-10.8) X10*3/uL RBC 5.12 (4.60-5.80) X10*6/uL Hgb 15.6 (14.0-18.0) g/dl Hct 45.4 (42.0-52.0) % MCV 88.7 (80.0-98.0) fL MCH 30.5 (27.0-33.0) pg MCHC 34.4 (31.0-36.0) g/dl RDW 11.5 (11.0-16.0) % Plt Count 281 (160-400) X10*3/uL MPV 9.0 L (9.4-12.4) fL Immature Gran % (Auto) 0.4 (0.0-0.4) % Neut % (Auto) 57.8 (45-73) % Lymph % (Auto) 30.9 (20-40) % [place] % (Auto) 7.4 (2-11) % Eos % (Auto) 3.1 (0-4) % Baso % (Auto) 0.4 (0-2) % Lymph # (Auto) 2.2 (1.2-4.9) X10*3/uL [place] # (Auto) 0.5 (0.1-1.2) X10*3/uL Eos # (Auto) 0.2 (0.0-0.4) X10*3/uL Baso # (Auto) 0.0 (0.0-0.2) X10*3/uL Abs Immat Gran (auto) 0.03 (0.00-0.03) X10*3/uL Absolute Neuts (auto) 4.0 (2.0-8.3) x10*3/uL Absolute Nucleated RBC 0.000 (0.0-0.012) X10*3/uL Nucleated RBC % (auto) 0.0 (0.0-0.2) /100WBC Sodium 139 (135-145) mmol/L Potassium 4.3 (3.3-5.1) mmol/L Chloride 102 (96-108) mmol/L Carbon Dioxide 25 (22-29) mmol/L Anion Gap 16 (12-20) BUN 11 (9-16) mg/dL Creatinine 0.94 (0.5-1.4) mg/dL Estim Creat Clear Calc 134.6 Estimated GFR > 60 Random Glucose 129 H (60-115) mg/dL Calcium 10.8 H D (8.4-10.2) mg/dL Troponin I High Sens < 2.7 (<3.5-35.0) ng/L Independent Interpretation I performed an independent interpretation of an: EKG (Sinus tachycardia with T-wave inversion in V3 through V6, rate 105 beats per minute, normal GA interval, prolonged QTC, unchanged from prior) and Plain X-Ray Interpretation: X-ray notable for no evidence of cardiomegaly, pneumothorax, pneumonia. Radiology Impression Discussion of test interpretation with radiology: I have reviewed the radiologist's reading. Radiologist Impression: RDER #: [id number] XR/XR chest 2V IMPRESSION: No acute cardiopulmonary findings. External Record Review External record reviewed: Inpatient record, Office record and Outpatient record Prescription Management I considered prescription management with: Pain Medication Discharge Plan Discharge Clinical Impression: Acute costochondritis Patient Disposition: Home, Self-Care Instructions: Costochondritis (ED) Additional Instructions: You were evaluated in the emergency department today with complaint of upper back/rib pain. This is likely due to costochondritis. We recommend that you take 600 mg ibuprofen every 6 hours. You are also being prescribed topical lidocaine patches which you can wear for up to 12 hours in a 24 hour period, do not apply heat directly over the patches. We recommend that you follow-up with your primary care provider. Return to the emergency department if you develop worsening chest pain, difficulty breathing, persistent vomiting, fevers, increasing rib or back pain or any other concerning symptoms. Prescriptions: New lidocaine 5 % adhesive patch,medicated 1 patch topical DAILY Qty: 15 0RF Rx Instructions: leave on most painful area for up to 12 hrs No Action ondansetron HCl [Zofran] 4 mg tablet 4 mg PO Q8H PRN (Reason: nausea and vomiting) Qty: 10 0RF oxycodone 5 mg tablet 5 mg PO Q6H PRN (Reason: pain) Qty: 7 0RF ibuprofen 600 mg tablet 600 mg PO Q6H PRN (Reason: pain) Qty: 60 0RF Print Language: Citizen Of [place]
[2023-12-04 12:54] VITALS: BP 147/78; PULSE 89; RESP 16; TEMP 36.6; O2SAT 100
[2023-12-04 13:01] VITALS: BP 00/00; PULSE 0; RESP 16; TEMP -17.7; TEMP 0
== END 2023-12-04 13:04 | disposition home or self-care (01) ==
PROVIDERS: Emergency Provider Emergency Medicine; PCP Internal Medicine
DX: M94.0 Chondrocostal junction syndrome [Tietze] (principal)
CPT/HCPCS: 36415; 71046; 80048; 84484; 85025; 93005; 99283; 99284

== ENCOUNTER → 2023-12-04 10:26 | Outpatient (BNV) | payer SELFPAY | PROVIDERS: Emergency Provider Emergency Medicine; PCP Internal Medicine; Visit Provider Internal Medicine | DX: R00.0 Tachycardia, unspecified (principal) | CPT/HCPCS: 93010 ==

== ENCOUNTER 2024-06-03 09:32 | Outpatient (REF) | payer SELFPAY ==
--- NOTE | ~2024-06-03 | XR_ITS ---
EXAMINATION: XR HAND, RIGHT CLINICAL INFORMATION: Crush injury of the thumb COMPARISON: None available. TECHNIQUE: PA, lateral, and oblique views of the right hand. FINDINGS: The bones and soft tissues are normal. No fracture. Alignment is anatomic. Joint spaces are maintained. No erosions or soft tissue calcifications. XR/XR hand RT min 3V IMPRESSION: Normal right hand. Electronically signed by: Kathryn King MD 06/03/2024 10:08 AM EDT
== END 2024-06-03 09:33 | disposition home or self-care (01) ==
LOC: HO.HHCX 09:32
PROVIDERS: Visit Provider Student in an Organized Health Care Education/Training Program
DX: S67.21XA Crushing injury of right hand, initial encounter (principal)
CPT/HCPCS: 73130

== ENCOUNTER 2024-10-04 11:12 | Outpatient (REF) | payer MEDICAID, SELFPAY ==
--- NOTE | ~2024-10-04 | XR_ITS ---
EXAMINATION: XR CHEST CLINICAL INFORMATION: cough COMPARISON: Chest x-ray 12/04/2023 TECHNIQUE: 2 views of the chest were obtained. FINDINGS: No significant abnormality is noted involving the heart, lungs, mediastinum, bony thorax or soft tissues. XR/XR chest 2V IMPRESSION: Unremarkable chest examination. Electronically signed by: Warren Pepper MD 10/04/2024 11:50 AM [facility]
--- OUTSIDE RECORDS SUMMARY | 2024-10-04 14:06 | XMS_ITS | Encounter Summary ---
Author Organization [employer] Address [address] [facility] [address] [address] [place] [address] Care Team Providers Care Spotter Name Role Phone Anya Salas MD Primary Care Provide r Reason for Visit * Reason Onset Date Comments TP Appt 01/12/2023 Encounter Details Date Type Department Care Team ([facility] st Contact Info) Description 01/12/2023 Telephone [facility] [address] [place] [address] Vlad Cox MD [address] [place] [address] TP Appt Social History Tobacco Use Types Packs/Day Years Used Date Smoking Tobacco: Never Assessed Sex and Gender Information Value Date Recorded Sex Assigned at Male 06/02/2022 10:38 AM EDT Legal Sex Male 10:38 AM EDT Gender Identity Male 06/02/2022 10:38 AM EDT Sexual Orientation Choose not to disclose 2021 10:38 AM EDT COVID-19 Exposure Response Date Recorded In the last 10 days, have yo u been in contact with someone who was confirmed or suspected to have Coronavirus/COVID-19? No / Unsure 01/12/2023 4:40 PM EDT documented as of this encounter Miscellaneous Notes * Telephone Encounter - Donald Ny - 03/17/2023 1:13 PM EDT Patient is in need of a TP appt. Please contact pt at [phone] * Telephone Encounter - Donald Ny - 01/12/2023 2:51 PM EDT Patient is in need of a TP appt. Please contact pt at [phone] documented in this encounter Plan of Treatment Not on file documented as of this encounter Visit Diagnoses Not on filedocumented in this encounter Care Teams Spotter Relationship Specialty Start Date End Date Anya Salas MD [address] [place] [id number] PCP - General Internal Medicine 06/08/23 documented as of this encounter
--- OUTSIDE RECORDS SUMMARY | 2024-10-04 14:06 | XMS_ITS | Clinical Summary ---
Author Organization [facility] it Address [address] [place] [address] Care Team Providers Care Trailer Rental Clerk Name Role Phone Unavailable Primary Care Provider Unavailabl e Social History Tobacco Use Types Packs/Day Years Used Date Smoking Tobacco: Never Smokeless Tobacco: Never Alcohol Use Standard Drinks/Week Comments No 0 (1 standard drink = 0.6 oz pur e alcohol) Sex and Gender Information Value Date Recorded Sex Assigned at Not on file Legal Sex Male 11:31 PM EST Gender Identity Not on file Sexual Orientation Not on file Obstetrics History Plan of Treatment Health Maintenance Due Date Last Done Comments Hepatitis B Vaccines (1 of 3 - 19+ 3-dose series) 2014 COVID-19 Vaccine (2023-2 5 season) 2024 Influenza Vaccine (#1) 2024 DTaP,Tdap,and Td Vaccines (2 - Td or Tdap) 10/03/2029 10/04/2019 HIB Vaccines Aged Out No longer eligi ble based on patient's age to complete this topic HPV Vaccines Aged Out No longer eligi ble based on patient's age to complete this topic Hepatitis A Vaccines Aged Out No long er eligible based on patient's age to complete this topic IPV Vaccines Aged Out No longer eligi ble based on patient's age to complete this topic MMR Vaccines Aged Out No longer eligi ble based on patient's age to complete this topic Meningococcal ACWY Vaccine Aged Out N o longer eligible based on patient's age to complete this topic Meningococcal B Vacine Aged Out No lo nger eligible based on patient's age to complete this topic Pneumococcal Vaccine: Pediat rics (0 to 5 Years) and At-Risk Patients (6 to 64 Years) Aged Out No longer eligi ble based on patient's age to complete this topic RSV Immunization Patients Un colton 20 months Aged Out No longer eligible b ased on patient's age to complete this topic Varicella Vaccines Aged Out No longer eligible based on patient's age to complete this topic
--- OUTSIDE RECORDS SUMMARY | 2024-10-04 14:06 | XMS_ITS | Clinical Summary ---
Author Organization [facility] Address [address] [place] [address] Care Team Providers Care Seating Captain Name Role Phone Unavailable Primary Care Provider Unavailabl e Allergies No known active allergies Medications No known medications Immunizations Name Administration Dates Next Due Adacel (Tdap) 10/04/2019 Social History Tobacco Use Types Packs/Day Years Used Date Smoking Tobacco: Never Smokeless Tobacco: Never Alcohol Use Standard Drinks/Week Comments No 0 (1 standard drink = 0.6 oz pur e alcohol) Sex and Gender Information Value Date Recorded Sex Assigned at Male 10/04/2019 9:54 AM EST Gender Identity Not on file Sexual Orientation Not on file Last Filed Vital Signs Vital Sign Reading Time Taken Comments Blood Pressure 132/68 10/04/2019 11:24 AM EST Pulse 78 10/04/2019 9:46 AM EST Temperature 36.7 ??C (98.1 ??F) 10/04/2019 9:46 AM ES T Respiratory Rate 18 10/04/2019 9:46 AM EST Oxygen Saturation 100% 10/04/2019 9:46 AM EST Inhaled Oxygen Concentration - - Weight - - Height - - Body Mass Index - - Plan of Treatment Not on file
--- OUTSIDE RECORDS SUMMARY | 2024-10-04 14:06 | XMS_ITS | Clinical Summary ---
Author Organization [employer] Address [address] [place] [address] 7[address] [place] [address] Care Team Providers Care Ticket Scheduler Name Role Phone Anya Salas MD Primary Care Provide r Allergies No known active allergies Medications * This document contains information received from the source organization and may not represent a complete record from that organization. selenium sulfide (Selsun) 2.5 % shampoo Apply topically in the morning. Apply to mcdowell and affected areas of hair loss 118 mL 3 Active hydrOXYzine HCl (Atarax) 25 MG tabletIndicatio ns:Anxiety Take 1 tablet (25 mg) by mouth if needed at bedtime for itching. 30 tablet 3 Active Blood Pressure kit 1 each 2 times daily. 1 kit 5 10/05/19 26 Active albuterol 108 (90 Base) MCG/ACT inhaler Inhale 2 puffs every 4 (four) hours if needed for wheezing or shortness of breath. 18 g 1 5 10/05/19 26 Active albuterol (2.5 MG/3ML) 0.083% nebulizer solution Take 3 mL (2.5 mg) by nebulization every 6 (six) hours if needed for wheezing or shortness of breath. 75 mL 1 5 10/05/19 26 Active Hospital, Clinic, or Other Facility Administered Medication Ordered Dose Route Frequency Start Date End Date Status triamcinolone acetonide (Kenalog-40) injection 40 mgIndications:Alopecia areata 40 mg IM Once 06/12/2023 Active Active Problems Problem Noted Date Diagnosed Date Folic acid deficiency (non anemic) 07/22/2023 Assessment & Plan (07/22/2023 2:39 PM EST): C/w supplement Class 1 obesity without seri ous comorbidity with body mass index (BMI) of 30.0 to 30.9 in adult 06/08/2023 Assessment & Plan (06/08/2023 2:51 PM EST): Today extensive discussion was done about life style modifications I advise healthy diet (low calorie) and cardiovascular exercise Anxiety 06/08/2023 Assessment & Plan (07/22/2023 2:38 PM EST): Counseling done C/w hydroxyzine PRN Numbness in feet 06/08/2023 Encounters Date Type Department Care Team Description 10/04/2024 10:00 AM EST Office Visit [facility] [place] [id number] Acute cough (Primary Dx); Elevated blood pressure reading in office without diagnosis of hypertension; Acute URI from Last 3 Months Immunizations Name Administration Dates Next Due Tdap 10/04/2019 Social History Tobacco Use Types Packs/Day Years Used Date Smoking Tobacco: Never Passive Smoke Exposure: Never Smokeless Tobacco: Never Tobacco Cessation:Counseling Given: Not Answered Depression Answer Date Recorded Patient Health Questionnaire-9 Score 0 06/08/2023 Patient Health Questionnaire-9 Score 0 06/08/2023 Last PHQ-9: Questionnaire Data Not on file 1 08/08/2022 Housing Stability Answer Date Recorded What is your housing situation today? I have richmond moreno 05/29/[address] you li ve. Do you have problems with any of the following? None of the above 05/29/2023 Food Insecurity Answer Date Recorded Within the past 12 months, y ou worried that your food would run out before you got money to buy more: Never True 05/29/2023 Within the past 12 months,th e food you bought just didn't last and you didn't have enough money to get more: Never True Transportation Answer Date Recorded In the past 12 months, has l ack of transportation kept you from medical appts, meetings, work or from getting things needed for daily living? No 05/29/2023 Utilities Answer Date Recorded In the past 12 months, has t he electric, gas, oil or water company threatened to shut off services in your home? No 05/29/2023 Depression Answer Date Recorded Patient Health Questionnaire-2 Score 0 06/08/2023 Sex and Gender Information Value Date Recorded Sex Assigned at Male 06/02/2022 10:38 AM EDT Legal Sex Male 10:38 AM EDT Gender Identity Male 06/02/2022 10:38 AM EDT Sexual Orientation Choose not to disclose 2021 10:38 AM EDT Last Filed Vital Signs Vital Sign Reading Time Taken Comments Blood Pressure 158/99 10/04/2024 10:13 AM EST Pulse 102 10/04/2024 10:13 AM EST Temperature 36.6 ??C (97.9 ??F) 10/04/2024 10:[address] Respiratory Rate 17 10/04/2024 10:13 AM EST Oxygen Saturation 97% 10/04/2024 10:13 AM EST Inhaled Oxygen Concentration - - Weight 95.1 kg (209 lb 9.6 oz) 10/04/2024 10:13 AM EST Height 175.3 cm (5' 9 ) 06/03/2024 9:15 AM EDT Body Mass Index 30.95 06/03/2024 9:15 AM EDT Plan of Treatment Health Maintenance Due Date Last Done Comments HIV Screening 1995 Alcohol/Substance Use Screening 2007 Family Planning (PISQ) 2010 Hepatitis C Screening 2013 Hepatitis B Vaccines (1 of 3 - 19+ 3-dose series) 2014 COVID-19 Vaccine (3 - 2023-2 5 season) 2024 06/28/2021, 06/07/2021 Influenza Vaccine (#1) 2024 04/29/2016 SDOH Screening 04/29/2024 04/29/2023 Depression Screening 06/08/2024 06/08/2023, 06/08/2023 Tobacco Screening 10/04/2025 10/04/2024 Lipid Panel 06/12/2028 06/12/2023 DTaP/Tdap/Td Vaccines (3 - T d or Tdap) 10/03/2029 10/04/2019, 05/22/2016 Zoster Vaccines (1 of 2) 2045 RSV Patients and Patients Aged 60 years or older (1 - 1-dose 75+ series) 2070 HIB Vaccines Aged Out No longer eligi [...] patient's age to complete this topic Meningococcal Vaccine Aged Out No vel maggie eligible based on patient's age to complete this topic Pneumococcal Vaccine: Pediatrics (0 to 5 Years) and At-Risk Patients (6 to 49) Years) Aged Out No longer eligible b ased on patient's age to complete this topic RSV under 20 months Aged Out No longe r eligible based on patient's age to complete this topic Rotavirus Vaccines Aged Out No longer eligible based on patient's age to complete this topic Procedures Procedure Name Priority Date/Time Associated Diagnosis Comments XR CHEST 2 VIEWS Routine 10/04/2024 11:1 2 AM EST Acute cough POCT INFLUENZA B (ID NOW RAPID MOLECULAR) Routine 10/04/2024 10:31 AM EST Acute URI POCT INFLUENZA A (ID NOW RAPID MOLECULAR) Routine 10/04/2024 10:31 AM EST Acute URI POCT RAPID COVID ANTIGEN Routine 10/04/2024 10:31 AM EST Acute URI LIPID PANEL, STANDARD Routine 06/12/2023 12:38 PM EST Class 1 obesity due to excess calories without serious comorbidity with body mass index (BMI) of 30.0 to 30.9 in adult from Last 3 Months or Most Recently Relevant to Health Maintenance Results * XR Chest 2 Views (10/04/2024 11:12 AM EST) Anatomical Region Laterality Modality Chest Radiographic Latoya ging 10/04/2024 11:1 2 AM EST Narrative 10/04/2024 11:52 AM EST ?[facility] ?[address] ?[place] [address] ?XRay Report ? Signed ? Patient: Hannah Lewis,Jose Armando ?MR#: [id number] ?? [id number] ? : 1995 ?Acct:[id number] ? Age/Sex: 29 / M ?ADM Date: 10/04/24 ? Loc: HO.HHCX ? Attending Dr: Jeremiah Wahl MD ? Ordering Physician: JEREMIAH WAHL MD ?? Date of Service: 10/04/24 ?? Procedure(s): XR chest 2V ?? Accession Number(s): [id number] ? cc: JEREMIAH WAHL MD ? EXAMINATION: ?? XR CHEST ? CLINICAL INFORMATION: ?? cough ? COMPARISON: ?? Chest x-ray 12/04/2023 ? TECHNIQUE: ?? 2 views of the chest were obtained. ? FINDINGS: ?? No significant abnormality is noted involving the heart, lungs, ?? mediastinum, bony thorax or soft tissues. ? XR/XR chest 2V ?? IMPRESSION: ?? Unremarkable chest examination. ? Electronically signed by: ??Warren Pepper MD ??10/04/2024 11:50 AM EST RP ? Dictated By: ?Warren Pepper MD ? Signed By: ?<Electronically signed by Warren Pepper MD in OV> ?10/04/24 1150 ? DD/ 1112 ? TD/TT: 10/04/24 1128 ? Wrong Address Clerk: MSM ? Procedure Note Myrtle Rowe - 10/04/[address] [address] XRay Report Signed Patient: Vernon Kumar MMR#: [id number] : 1995Acct:[id number] Age/Sex: 29 / MADM Date: 10/04/24 Loc: HO.HHCX Attending Dr: Jeremiah Wahl MD Ordering Physician: JEREMIAH WAHL MD Date of Service: 10/04/24 Procedure(s): XR chest 2V Accession Number(s): [id number] cc: JEREMIAH WAHL MD EXAMINATION: XR CHEST CLINICAL INFORMATION: cough COMPARISON: Chest x-ray 12/04/2023 TECHNIQUE: 2 views of the chest were obtained. FINDINGS: No significant abnormality is noted involving the heart, lungs, mediastinum, bony thorax or soft tissues. XR/XR chest 2V IMPRESSION: Unremarkable chest examination. Electronically signed by: Warren Pepper MD 10/04/2024 11:50 AM EST RP Dictated By: Warren Pepper MD Signed By: <Electronically signed by Warren Pepper MD in OV> 10/04/24 1150 DD/ 1112 TD/TT: 10/04/24 1128 Wrong Address Clerk: LINDSAY us Jeremiah Wahl MD IMG XR PROCEDURES Final Result * Influenza B (ID NOW Rapid Molecular) (10/04/2024 10:31 AM EST) Influenza B Negative Negative, Indeterminate [facility] Swab 10/04/2024 10:3 1 AM EST us Jeremiah Wahl MD POINT OF CARE TEST ENTER/EDIT OR DERABLES Final Result Performing Organization Address [facility] Co de Phone Number [facility] [address] [place] [address] [phone] * Influenza A (ID NOW Rapid Molecular) (10/04/2024 10:31 AM EST) [facility] Influenza A Negative Negative, Indeterminate [facility] Swab 10/04/2024 10:3 1 AM EST us Jeremiah Wahl MD POINT OF CARE TEST ENTER/EDIT OR DERABLES Final Result Performing Organization Address [facility] Co de Phone Number [facility] [address] [place] [phone] * POCT Rapid COVID Ag (10/04/2024 10:31 AM EST) Rapid COVID Ag Negative [facility] Swab 10/04/2024 10:3 1 AM EST us Jeremiah Wahl MD POINT OF CARE TEST ENTER/EDIT OR DERABLES Final Result Performing Organization Address [facility] Co de Phone Number [facility] [address] [place] [phone] [phone] * (ABNORMAL) Lipid Panel, Standard (06/12/2023 12:38 PM EST) Triglycerides 95 <150 mg/dL [facility] Comment:Desirable Triglyceri de: less than 150 mg/dLBorderline High Triglyceride 150-199 mg/dLHigh Triglyceride: 200-499 mg/dLVery High Triglyceride: greater than or equal to 5OO mg/dL Cholesterol 178 <200 mg/dL [facility] Comment:Desirable Cholestero l: less than 200 mg/dLBorderline High Cholesterol: 200-239 mg/dLHigh Cholesterol: greater than 239 mg/dL LDL Cholesterol Calculated 116(H) <100 mg/dL [facility] Comment:Desirable LDL: less than 100 mg/dLNear Optimal/Above Optimal LDL: 110- 129 mg/dLBorderline High LDL: 130-159 mg/dLHigh LDL: 160-189 mg/dLVery High LDL: greater than or equal to 190 mg/dL HDL Cholesterol 43 >40 mg/dL [facility] Comment:Desirable HDL: great er than 40 mg/dL Note: This HDL assay may give artificially low results in patients with liver disease. Blood Venous blood specimen / Unknown 06/12/2023 12:38 PM EST 06/12/2023 12:38 PM EST us Anya Mathis MD LAB BLOOD ORDERABLES Final Result Performing Organization Address City/[facility]/ZIP Co de Phone Number [facility] [address] [place] [address] [phone] from Last 3 Months or Most Recently Relevant to Health Maintenance Insurance [facility] Care Teams Ticket Scheduler Relationship Specialty Start Date End Date Anya Salas MD [address] [place] [phone] PCP - General Internal Medicine 06/08/23
--- OUTSIDE RECORDS SUMMARY | 2024-10-04 14:06 | XMS_ITS | Encounter Summary ---
Author Organization [employer] Address [address] [place] [address] Care Team Providers Care Health Policy Manager Name Role Phone Anya Salas MD Primary Care Provide r Reason for Visit * Reason Comments Cough Encounter Details Date Type Department Care Team ([facility] st Contact Info) Description 10/04/2024 10:00 AM EST Office Visit [facility] [address] [place], [place] [phone] Acute cough (Primary Dx); Elevated blood pressure reading in office without diagnosis of hypertension; Acute URI Social History Tobacco Use Types Packs/Day Years Used Date Smoking Tobacco: Never Passive Smoke Exposure: Never Smokeless Tobacco: Never Depression Answer Date Recorded Patient Health Questionnaire-9 [...] not to disclose 2021 10:38 AM EDT documented as of this encounter Last Filed Vital Signs Vital Sign Reading [...] 9.6 oz) 10/04/2024 10:13 AM EST Height - - Body Mass Index 30.95 06/03/2024 9:15 AM EDT documented in this encounter Plan of Treatment Scheduled Orders Name Type Priority Associated Diagnoses Orde r Schedule Respiratory Viral Panel PCR Lab Routine Acute cough Expected: 10/04/2024 (Approximate), Expires: 10/04/2025 documented as of this encounter Procedures Procedure Name Priority Date/Time Associated Diagnosis Comments XR CHEST 2 VIEWS Routine 10/04/2024 11:1 2 AM EST Acute cough POCT INFLUENZA B (ID NOW RAPID MOLECULAR) Routine 10/04/2024 10:31 AM EST Acute URI POCT INFLUENZA A (ID NOW RAPID MOLECULAR) Routine 10/04/2024 10:31 AM EST Acute URI POCT RAPID COVID ANTIGEN Routine 10/04/2024 10:31 AM EST Acute URI documented in this encounter Results * XR Chest 2 Views (10/04/2024 11:12 AM EST) Anatomical Region Laterality Modality Chest Radiographic Latoya ging 10/04/2024 11:1 2 AM EST Narrative 10/04/2024 11:52 AM EST ?[facility] ?[address] ?[place] [address] ?XRay Report ? Signed ? Patient: Hannah Lewis,Vernon Lakhani ?MR#: [id number] ?? [id number] ? : 1995 ?Acct:[id number] ? Age/Sex: 29 / M ?ADM Date: 10/04/24 ? Loc: HO.HHCX ? Attending Dr: Jeremiah Wahl MD ? Ordering Physician: JEREMIAH WAHL MD ?? Date of Service: 10/04/24 ?? Procedure(s): XR chest 2V ?? Accession Number(s): [id number] ? cc: JEREMIAH WAHL MD ? EXAMINATION: [...] DD/ 1112 ? TD/TT: 10/04/24 1128 ? Bowling Pin Refinisher: MSM ? Procedure Note Jae, Image - 10/04/[address] [address] XRay Report Signed Patient: Vernon Kumar [facility]#: [id number] : 1995Acct:[id number] Age/Sex: 29 / MADM Date: 10/04/24 Loc: HO.HHCX Attending Dr: Jeremiah Wahl MD Ordering Physician: JEREMIAH WAHL MD Date of Service: 10/04/24 Procedure(s): XR chest 2V Accession Number(s): [id number] cc: JEREMIAH WAHL MD EXAMINATION: XR CHEST [...] 10/04/24 1150 DD/ 1112 TD/TT: 10/04/24 1128 Bowling Pin Refinisher: LINDSAY Jeremiah Wahl MD IMG XR PROCEDURES Final Result * Influenza B (ID NOW Rapid Molecular) (10/04/2024 10:31 AM EST) Influenza B Negative Negative, Indeterminate [facility] Swab 10/04/2024 10:3 1 AM EST Jeremiah Wahl MD POINT OF CARE TEST ENTER/EDIT OR DERABLES Final Result Performing Organization Address [facility] Co de Phone Number [facility] [address] [place] [phone] * Influenza A (ID NOW Rapid Molecular) (10/04/2024 10:31 AM EST) Influenza A Negative Negative, Indeterminate [facility] Swab 10/04/2024 10:3 1 AM EST Jeremiah Wahl MD POINT OF CARE TEST ENTER/EDIT OR DERABLES Final Result Performing Organization Address [facility] Co de Phone Number [facility] [address] [place] [phone] * POCT Rapid COVID Ag (10/04/2024 10:31 AM EST) Rapid COVID Ag Negative [facility] Swab 10/04/2024 10:3 1 AM EST Jeremiah Wahl MD POINT OF CARE TEST ENTER/EDIT OR DERABLES Final Result [facility] [address] [place] [phone] [phone] documented in this encounter Visit Diagnoses Diagnosis Acute cough- Primary Elevated blood pressure reading in office without diagnosis of hypertension Acute URI Acute upper respiratory infections of unspecified site documented in this encounter Additional Health Concerns Assessment Noted Time PHQ-9 Depression Total Score: 0 06/08/20 23 2:18 PM EST documented as of this encounter Care Teams Health Policy Manager Relationship Specialty Start Date End Date Anya Salas MD [address] [place] [phone] PCP - General Internal Medicine 06/08/23 documented as of this encounter
[2024-10-05 12:40] LABS: Adenovirus PCR Not Detected (Not Detect.); Bordetella parapertussis PCR Not Detected (Not Detect.); Bordetella pertussis PCR Not Detected (Not Detect.); Chlamydia pneumoniae PCR Not Detected (Not Detect.); Coronavirus 229E PCR Not Detected (Not Detect.); Coronavirus HKU1 PCR Not Detected (Not Detect.); Coronavirus NL63 PCR Not Detected (Not Detect.); Coronavirus OC43 PCR Not Detected (Not Detect.); Human metapneumovirus PCR Not Detected (Not Detect.); Influenza A PCR Not Detected (Not Detect.); Influenza B PCR Not Detected (Not Detect.); Mycoplasma pneumoniae PCR Not Detected (Not Detect.); Parainfluenza 1 PCR Not Detected (Not Detect.); Parainfluenza 2 PCR Not Detected (Not Detect.); Parainfluenza 3 PCR Not Detected (Not Detect.); Parainfluenza 4 PCR Not Detected (Not Detect.); RSV PCR Not Detected (Not Detect.); Rhino/Enterovirus PCR Not Detected (Not Detect.)
[2024-10-05 13:15] LABS: SARS-CoV-2 PCR Not Detected (Not Detect.)
== END 2024-10-04 11:13 | disposition home or self-care (01) ==
LOC: HO.HHCX 11:12
PROVIDERS: Visit Provider Emergency Medicine
DX: R05.1 Acute cough (principal)
CPT/HCPCS: 71046; 87633

== ENCOUNTER → 2024-10-04 11:12 | Outpatient (BNV) | payer MEDICAID, SELFPAY | PROVIDERS: Visit Provider Radiology Diagnostic Radiology | DX: R05.9 Cough, unspecified (principal) | CPT/HCPCS: 71046 ==